=== PATIENT | female | born 1945 | race Two or more races ===

== ENCOUNTER 2024-08-31 10:58 | Emergency (ER) | payer OTHER, SELFPAY ==
[2024-08-31 11:01] VITALS: BP 166/84; PULSE 70; RESP 15; TEMP 36.6; O2SAT 99; BMI 21.0
--- NOTE | 2024-08-31 11:13 | XR_ITS ---
Examination: AP chest single view TECHNIQUE: AP portable upright chest single view Exam date and time: August 31, 2024 1155 hours Comparison January 10, 2024 INDICATIONS: Chest pain today. FINDINGS: Normal heart size. Lungs are clear. The osseous structures are intact IMPRESSION: No active disease
--- NOTE | 2024-08-31 11:17 | EKG_ITS ---
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
--- NOTE | 2024-08-31 11:17 | PD.EDADULT ---
ED General RME/HPI General Chief complaint: Chest Pain Stated complaint: CHEST PAIN/ SOB Time Seen by Provider: 08/31/24 11:09 Arrival date/time: 08/31/24 10:58 RME / HPI RME / HPI narrative: 78-year-old female patient with significant history of hypertension diabetes mellitus, came in for evaluation regarding chest pain. Patient has been having left-sided chest pain for several days, comes and goes, getting worse this morning. Pain is described as sharp pain, severity 9 out of 10 nonradiating. Patient also complained of dry cough. Denies any fever denies any chest trauma or fall. Denies any other complaints patient was given aspirin and nitro by EMS. According to the patient pain is now less as compared to earlier. Related Data Home Medications ?Medication ?Instructions ?Recorded ?Confirmed amlodipine 10 mg tablet 10 mg QDAY 12/15/22 12/15/22 labetalol 200 mg tablet 200 mg BID 12/15/22 12/15/22 metformin 1,000 mg tablet 1,000 mg BID 12/15/22 12/15/22 Previous Rx's ?Medication ?Instructions ?Recorded docusate calcium 240 mg capsule 240 mg PO QDAY #14 caps 06/01/22 acetaminophen 500 mg capsule 1,000 mg (2 x 500 mg) PO Q6H PRN 12/15/22 fever or pain #30 caps ibuprofen 600 mg tablet 600 mg PO TID #30 tabs 12/15/22 ibuprofen 600 mg tablet 600 mg PO TID PRN pain #30 tabs 08/31/24 Allergies Allergy/AdvReac Type Severity Reaction Status Date / Time No Known Allergies Allergy Verified 01/10/24 17:44 Review of Systems Review of Systems Narrative Review of Systems: Review of system reviewed and within normal limits except mentioned in HPI ED Exam Narrative Physical exam: VITAL SIGNS: Reviewed. GENERAL APPEARANCE: Alert and interactive, follows commands, no acute distress, HEAD AND FACE: Non-traumatic. ENT: PERRL, pink conjunctivitis, eyelid no trauma, Mucous membrane moist. NECK: Supple, nontender, no nuchal rigidity. CHEST: Left chest tenderness, no crepitus, no paradoxical movement, no retractions. LUNGS: Clear, well ventilated, symmetric, no rales, no wheezing, no ronchi, no stridor, good breath sounds bilaterally. HEART: Regular rate, regular rhythm, no murmur, no gallops. ABDOMEN: Soft, positive bowel sounds, nondistended, no guarding, nontender, no rebound, no masses, RECTAL: Deferred. GENITAL: Deferred. NEUROLOGICAL: Gross motor function intact sensory function intact, Appropriate for age. MUSCULOSKELETAL: low back nontender, full range of motion. EXTREMITIES: Nontender, full range of motion. SKIN: Color pink, dry, no rash, no lacerations, no abrasions, no contusions. LYMPHATICS: Deferred. Course Quality Measures none Orders Category Date Time Status EKG (ED ONLY) *Do not use* NOW Care 08/31/24 11:17 Completed EKG (ED Only) Stat Exams 08/31/24 11:17 Draft XR chest 1V Stat Exams 08/31/24 11:13 Completed B-Type Natriuretic Peptide Stat Lab 08/31/24 11:21 Completed CBC Stat Lab 08/31/24 11:21 Completed Comprehensive Metabolic Panel Stat Lab 08/31/24 11:21 Results Partial Thromboplastin Time Stat Lab 08/31/24 11:21 Completed Prothrombin Time with INR Stat Lab 08/31/24 11:21 Completed Troponin I Stat Lab 08/31/24 11:21 Results Troponin I Stat Lab 08/31/24 13:21 Completed Urinalysis, C/S if Indicated Stat Lab 08/31/24 12:52 Completed Urine Culture Stat Lab 08/31/24 12:52 Received Vital Signs Vital signs: Vital Signs Temperature 97.9 F 08/31/24 11:01 Pulse Rate 70 08/31/24 11:01 Respiratory Rate 15 08/31/24 11:01 Blood Pressure 166/84 H 08/31/24 11:01 Pulse Oximetry (%) 99 08/31/24 11:01 Oxygen Delivery Method Nasal Cannula 08/31/24 11:01 Oxygen Flow Rate 2 08/31/24 11:01 [facility] Patient data External records reviewed:: None Clinical information provided by:: none Social determinants that could affect healthcare access:: none Patient has the following chronic illnesses:: Hypertension, diabetes mellitus How is presenting disease/condition affected by chronic disease/condition?: exacerbated by Evaluation data The following diagnostics were reviewed and interpreted by me:: lab results, radiology exam(s) and EKG tracing(s) Lab and/or radiology exams considered but not ordered:: None Interpretation Summary: EKG as interpreted by me showed sinus bradycardia, ventricular rate of 53 bpm, no ST segment elevation depression noted. Laboratory workup all came back normal including troponin x 2. Urinalysis no UTI. I personally reviewed and interpreted the x-ray of this patient. There is no acute abnormalities found, no infiltrates no pneumothorax no hemothorax normal chest x-ray. Review of other structures was without significant abnormal findings also. I additionally reviewed the radiologist report and agree with the interpretation. Medications Medications considered but not ordered:: None Medication administrations:: None Consultations Consultation(s) initiated? (list below): No Diagnosis Differential Diagnosis ED Complaint MDM: Pneumonia, GERD, chest pain, Most likely diagnosis given after review of the tests above:: Chest pain Admission Indicated Admission indicated?: not indicated Explain why admission is indicated or not indicated:: Stable Admission Request Was there a request for admission?: No Disposition Plan Disposition Plan: Discharge Discharge Attestation Discharge Attestation: The patient was given an opportunity to ask questions and understood the discharge instructions. Discharge instructions specifically effects, indications for sooner follow up or return to the emergency department, and the expected course of current diagnosis. Patient condition: Stable Medical Decision Making MDM Narrative MDM Narrative: 78-year-old female patient with significant history of hypertension diabetes mellitus, came in for evaluation regarding chest pain. Patient has been having left-sided chest pain for several days, comes and goes, getting worse this morning. Pain is described as sharp pain, severity 9 out of 10 nonradiating. Patient also complained of dry cough. Denies any fever denies any chest trauma or fall. Denies any other complaints patient was given aspirin and nitro by EMS. According to the patient pain is now less as compared to earlier. Cardiac workup will came back unremarkable including troponin x 2. Results discussed with the patient. Patient told me that her chest pain is totally gone prior to discharge Differential Diagnosis Differential Diagnosis: Pneumonia, GERD, chest pain, Lab Data 08/31/24 11:21 08/31/24 11:21 Labs: Lab Results 08/31/24 08/31/24 08/31/24 Range/Units 11:21 12:52 13:21 WBC 5.3 (3.6-11.0) Thou/mm3 RBC 4.06 (4.00-5.20) Miln/mm3 Hgb 12.4 (12.0-16.0) g/dL Hct 34.4 L (36.0-46.0) % MCV 85 (80-100) fL MCH 30.5 (25.0-35.0) pg MCHC 36.0 (31.0-37.0) g/dl RDW Std Deviation 36.7 (36.4-46.3) fL Plt Count 186 (140-440) Thou/mm3 Neut % (Auto) 47 (37-80) % Lymph % (Auto) 44 (10-50) % Kerr % (Auto) 6 (0-12) % Eos % (Auto) 2 (0-10) % Baso % (Auto) 1 (0-2.5) % Neut # (Auto) 2.5 (1.8-7.7) Thou/mm3 Lymph # (Auto) 2.3 (1.0-4.8) Thou/mm3 Kerr # (Auto) 0.3 (0.0-0.8) Thou/mm3 Eos # (Auto) 0.1 (0.0-0.5) Thou/mm3 Baso # (Auto) 0.1 (0.0-0.2) Thou/mm3 Immature Gran # (Auto) 0.01 H (0.00-0.00) Thou/mm3 Absolute Nucleated RBC 0.00 (0.00-0.00) Thou/mm3 Immature Gran % 0 (0-0) % Nucleated RBC % 0 (0) /100 WBC PT 11.4 (9.0-12.2) Seconds INR 1.0 (0.9-1.3) APTT 22.9 (22.0-36.0) Seconds Sodium 138 (136-145) mMol/L Potassium 3.8 (3.4-5.1) mMol/L Chloride 108 H (98-107) mMol/L Carbon Dioxide 23.7 (20.0-31.0) mMol/L Anion Gap 6 L (7-16) BUN 19 (9-23) mg/dL Creatinine 1.0 (0.6-1.3) mg/dL Estim Creat Clear Calc 37.7 L (>60) mL/min eGFR 57 L (60 - ) See Note BUN/Creatinine Ratio 19 (12-20) Ratio Glucose 223 H (74-106) mg/dL Calculated Osmolality 284 (275-295) Calcium 11.1 H (8.3-10.6) mg/dL Corrected Calcium 11.1 H (8.5-10.1) mg/dL AST 11 (0-34) U/L ALT 10 (10-49) U/L Alkaline Phosphatase 49 (46-116) U/L Troponin I < 0.002 < 0.002 (0.0-0.045) ng/mL B-Natriuretic Peptide 69 (0-100) pg/mL Total Protein 6.2 (5.7-8.2) gm/dL Albumin 4.0 (3.4-4.8) gm/dL Globulin 2.2 L (2.3-3.5) gm/dL Albumin/Globulin Ratio 1.8 (1.2-2.2) Ur Collection Type Clean Catch Urine Color Lt-Yellow (Lt Yel-Yel) Urine Clarity Clear (Clear/Hazy) Urine pH 6.5 (5.0-7.0) Ur Specific [place] 1.015 (1.001-1.035) Urine Protein Negative (Neg - Trace) Urine Glucose (UA) 2+ A (Negative) Urine Ketones Negative (Negative) Urine Blood Negative (Negative) Urine Nitrite Negative (Negative) Urine Bilirubin Negative (Negative) Urine Urobilinogen (Auto) Negative (0.0-1.0) mg/dL Ur Leukocyte Esterase Positive (Negative) Urine RBC 1 (0-3) /hpf Urine WBC 11 H (0-5) /hpf Ur Squamous Epith Cells 1 (0-5) /hpf Urine Bacteria None (None) Ur Culture Indicated? Yes Discharge Plan Plan Patient Disposition: HOME (Self Care) Disposition Comment: stable Prescriptions/Referrals Prescriptions/Med Rec: New ibuprofen 600 mg tablet 600 mg PO TID PRN (Reason: pain) Qty: 30 0RF No Action docusate calcium 240 mg capsule 240 mg PO QDAY Qty: 14 0RF labetalol 200 mg tablet 200 mg BID Patient Comments: TAKE 1 TABLET BY MOUTH TWICE DAILY amlodipine 10 mg tablet 10 mg QDAY metformin 1,000 mg tablet 1,000 mg BID acetaminophen 500 mg capsule 1,000 mg PO Q6H PRN (Reason: fever or pain) Qty: 30 0RF ibuprofen 600 mg tablet 600 mg PO TID Qty: 30 0RF Referrals: Zan Wyatt MD [Primary Care Provider] - In 1 week Problem List Clinical Impression: Chest pain Patient/Caregiver Discharge Instructions Discharge Activity: activity as tolerated Education Materials: ED Chest Pain, Noncardiac Additional Instructions: Thank you for the opportunity for serving you today. You are stable for discharged . You are advised to: Follow-up with your PCP in 1 to 2 days Return to ED for worsening of symptoms Increase oral fluids Take medication as prescribed Print Language: Nicaraguan Stand Alone Forms: Nahed Award Info., Patient Portal Info Letter PA/MICA PASTER Supervising Physician MADI/KOLBY Supervising Physician: MD Kalli
[2024-08-31 11:19] VITALS: PULSE 66
[2024-08-31 11:27] LABS: Basophils # (Auto) 0.1 Thou/mm3 (0.0-0.2); Basophils % (Auto) 1 % (0-2.5); Eosinophils # (Auto) 0.1 Thou/mm3 (0.0-0.5); Eosinophils % (Auto) 2 % (0-10); Hematocrit 34.4 % (36.0-46.0); Hemoglobin 12.4 g/dL (12.0-16.0); Immature Granulocytes % (Auto) 0 % (0-0); Immature Granulocytes Auto 0.01 Thou/mm3 (0.00-0.00); Lymphocytes # (Auto) 2.3 Thou/mm3 (1.0-4.8); Lymphocytes % (Auto) 44 % (10-50); Mean Corpuscular Hemoglobin 30.5 pg (25.0-35.0); Mean Corpuscular Volume 85 fL (80-100); Monocytes # (Auto) 0.3 Thou/mm3 (0.0-0.8); Monocytes % (Auto) 6 % (0-12); Neutrophils # (Auto) 2.5 Thou/mm3 (1.8-7.7); Neutrophils % (Auto) 47 % (37-80); Nucleated Red Blood Cell % 0 /100 WBC (0); Platelet Count 186 Thou/mm3 (140-440); RDW Standard Deviation 36.7 fL (36.4-46.3); Red Blood Count 4.06 Miln/mm3 (4.00-5.20); White Blood Count 5.3 Thou/mm3 (3.6-11.0)
[2024-08-31 11:43] LABS: B-Type Natriuretic Peptide 69 pg/mL (0-100)
[2024-08-31 11:55] LABS: Alanine Aminotransferase 10 U/L (10-49); Albumin/Globulin Ratio 1.8 (1.2-2.2); Alkaline Phosphatase 49 U/L (46-116); Anion Gap 6 (7-16); Aspartate Amino Transferase 11 U/L (0-34); BUN/Creatinine Ratio 19 Ratio (12-20); Blood Urea Nitrogen 19 mg/dL (9-23); Calcium 11.1 mg/dL (8.3-10.6); Calcium (Corrected) 11.1 mg/dL (8.5-10.1); Carbon Dioxide 23.7 mMol/L (20.0-31.0); Chloride 108 mMol/L (98-107); Estimated Creatinine Clearance 37.7 mL/min (>60); Globulin 2.2 gm/dL (2.3-3.5); Glucose 223 mg/dL (74-106); Osmolality,Calculated 284 (275-295); Potassium 3.8 mMol/L (3.4-5.1); Sodium 138 mMol/L (136-145); Total Protein 6.2 gm/dL (5.7-8.2); Troponin I < 0.002 ng/mL (0.0-0.045); eGFR 57 See Note
[2024-08-31 12:02] LABS: Partial Thromboplastin Time 22.9 Seconds (22.0-36.0); Prothrombin Time 11.4 Seconds (9.0-12.2)
[2024-08-31 12:13] VITALS: BP 205/65; PULSE 60; RESP 19; TEMP 36.8; O2SAT 98
--- NOTE | 2024-08-31 12:49 | PC.NURSE ---
Assumed care at this time pt continues to have chest pain, although it has subsided a little w/nitro paste. pt up to beside commode to provide urine. call gandhi remains in reach.
[2024-08-31 13:07] LABS: Collection Type, Urine Clean Catch
[2024-08-31 13:14] LABS: Bilirubin,Urine Negative (Negative); Blood,Urine Negative (Negative); Clarity,Urine Clear (Clear/Hazy); Color,Urine Lt-Yellow (Lt Yel-Yel); Glucose, Urine 2+ (Negative); Ketones,Urine Negative (Negative); Leukocyte Esterase,Urine Positive (Negative); Nitrite,Urine Negative (Negative); PH,Urine 6.5 (5.0-7.0); Protein,Urine Negative (Neg - Trace); RBC,Urine 1 /hpf (0-3); Specific Gravity,Urine 1.015 (1.001-1.035); Squamous Epithelial Cell,Urine 1 /hpf (0-5); Urobilinogen,Urine Negative mg/dL (0.0-1.0); WBC,Urine 11 /hpf (0-5)
[2024-08-31 13:24] LABS: Culture Indicated,Urine Yes
[2024-08-31 13:52] LABS: Troponin I < 0.002 ng/mL (0.0-0.045)
[2024-08-31 14:28] LABS: Bilirubin,Total 0.8 mg/dL (0.3-1.2)
[2024-08-31 14:51] VITALS: BP 141/79; PULSE 63; RESP 18; TEMP 36.7; O2SAT 100
--- NOTE | 2024-08-31 18:41 | PC.NURSE ---
Patients cell phone was found in room 6 after discharge. Both contact numbers were called with no answer. 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
== END 2024-08-31 15:02 | disposition home or self-care (01) ==
PROVIDERS: Nurse Practitioner Family; Emergency Provider Emergency Medicine; PCP Psychiatry & Neurology Neurology
DX: R07.89 Other chest pain (principal); R00.1 Bradycardia, unspecified; I10 Essential (primary) hypertension
CPT/HCPCS: 36415; 71045; 80053; 81001; 83880; 84484; 85025; 85610; 85730; 87086; 93005; 99283